=== PATIENT | female | born 1940 | race Two or more races ===

== ENCOUNTER 2023-03-04 10:50 | Emergency (ER) | payer MEDICAID ==
[~2023-03-04] VITALS: Ht 154.9 cm; Wt 85.3 kg
[2023-03-04] MEDS ORDERED: IBUPROFEN 600 MG TABLET ONE (11:15)
[2023-03-04] MEDS ORDERED: ACETAMINOPHEN ES 500 MG TABLET ONE (11:15)
[2023-03-04] MEDS: IBUPROFEN 600 MG TABLET PO ONE (11:18)
[2023-03-04] MEDS: ACETAMINOPHEN ES 500 MG TABLET PO ONE (11:18)
[2023-03-04] MEDS ORDERED: diphenhydrAMINE HCL 50 MG/ML VIAL IV ONE (12:00)
[2023-03-04] MEDS ORDERED: IV NS 0.9% 1,000 ML BAG IV ONE (12:00)
[2023-03-04] MEDS ORDERED: ONDANSETRON HCL/PF 4 MG/2 ML VIAL IVP ONE (12:00)
[2023-03-04 12:06] LABS: BASOPHILS % (AUTO) 0.2 % (0.0-2.0); EOSINOPHILS % (AUTO) 0.1 % (0.0-6.0); HEMATOCRIT 48 % (33-45); HEMOGLOBIN 16.2 g/dL (11.5-14.8); LYMPHOCYTES # (AUTO) 0.6 K/uL (0.8-4.8); LYMPHOCYTES % (AUTO) 9.8 % (20.0-44.0); MEAN CORPUSCULAR HEMOGLOBIN 32 PG (26.0-33.0); MEAN CORPUSCULAR HGB CONC 34 g/dl (31.0-36.0); MEAN CORPUSCULAR VOLUME 94 fL (82-100); MONOCYTES # (AUTO) 0.6 K/uL (0.1-1.30); MONOCYTES % (AUTO) 9.9 % (2.0-12.0); NEUTROPHILS # (AUTO) 5.2 K/uL (1.8-8.9); PLATELET COUNT (AUTO) 114 K/uL (150-450); RED BLOOD CELL COUNT(AUTO) 5.07 MIL/uL (4.0-5.2); RED CELL DISTRIBUTION WIDTH 13.2 % (11.5-15.0); WHITE BLOOD COUNT (AUTO) 6.5 K/uL (4.3-11.0)
[2023-03-04] MEDS ORDERED: ONDANSETRON HCL/PF 4 MG/2 ML VIAL ONE (12:10)
[2023-03-04] MEDS ORDERED: hydrALAZINE HCL IV 20 MG VIAL ONE (12:10)
[2023-03-04] MEDS ORDERED: diphenhydrAMINE HCL 50 MG/ML VIAL ONE (12:10)
[2023-03-04] MEDS: hydrALAZINE HCL IV 20 MG VIAL IV ONE (12:17)
[2023-03-04 12:20] LABS: CALCIUM, SERUM 9.6 mg/dL (8.5-10.1); CARBON DIOXIDE 26 mmol/L (21-32); CHLORIDE 100 mmol/L (98-107); CREATININE 0.9 mg/dL (0.6-1.3); GLUCOSE 113 mg/dL (74-106); POTASSIUM 3.9 mmol/L (3.5-5.1); SODIUM SERUM 133 mmol/L (136-145); UREA NITROGEN, BLOOD 14 mg/dL (7-18)
[2023-03-04] MEDS: IV NS 0.9% 1,000 ML BAG IV ONE (12:27)
[2023-03-04] MEDS ORDERED: AZIT500T PO (13:42)
[2023-03-04] MEDS ORDERED: IBUP-1953 PO (13:42)
[2023-03-04] MEDS ORDERED: BENZ-13 PO (13:42)
[2023-03-04 14:42] VITALS: BP 131/81; TEMP 97.9; O2SAT 96
== END 2023-03-04 14:43 | disposition home or self-care (01) ==
LOC: ER 10:54
DX: J40 Bronchitis, not specified as acute or chronic (principal); I10 Essential (primary) hypertension; Z20.822 Contact with and (suspected) exposure to COVID-19
CPT/HCPCS: 99284; 96360; 70450; 71045; 87426; 87804 ×2; 85025; 80048; 36415; 84484; J7030; C9803; J0360; J1200; J2405

== ENCOUNTER 2023-03-20 11:50 | Inpatient (IN) | payer MEDICAID ==
[~2023-03-20] VITALS: Ht 157.5 cm; Wt 74.8 kg
[~2023-03-20 11:50] MED LIST: AZIT500T PO; BENZ-13 PO; IBUP-1953 PO
[2023-03-20 12:57] LABS: BASOPHILS % (AUTO) 0.1 % (0.0-2.0); EOSINOPHILS # (AUTO) 0.1 K/uL (0.0-0.7); EOSINOPHILS % (AUTO) 0.5 % (0.0-6.0); HEMATOCRIT 41 % (33-45); HEMOGLOBIN 13.6 g/dL (11.5-14.8); LYMPHOCYTES # (AUTO) 0.3 K/uL (0.8-4.8); MEAN CORPUSCULAR HEMOGLOBIN 32 PG (26.0-33.0); MEAN CORPUSCULAR HGB CONC 33 g/dl (31.0-36.0); MEAN CORPUSCULAR VOLUME 95 fL (82-100); MONOCYTES # (AUTO) 1.1 K/uL (0.1-1.30); MONOCYTES % (AUTO) 10.4 % (2.0-12.0); NEUTROPHILS # (AUTO) 9.3 K/uL (1.8-8.9); PLATELET COUNT (AUTO) 132 K/uL (150-450); RED BLOOD CELL COUNT(AUTO) 4.31 MIL/uL (4.0-5.2); RED CELL DISTRIBUTION WIDTH 13.2 % (11.5-15.0); WHITE BLOOD COUNT (AUTO) 10.8 K/uL (4.3-11.0)
[2023-03-20] MEDS ORDERED: LOSA50TA39 PO (13:09)
[2023-03-20] MEDS ORDERED: LEVO50TA PO (13:09)
[2023-03-20 13:16] LABS: INR 1.01 (0.91-1.10); PROTHROMBIN TIME 10.7 SECS (9.2-11.1)
[2023-03-20 13:31] LABS: ALANINE AMINOTRANSFERASE 111 U/L (12-78); ALBUMIN 2.3 g/dL (3.4-5.0); ALKALINE PHOSPHATASE 170 U/L (46-116); ASPARTATE AMINOTRANSFERASE 104 U/L (15-37); BILIRUBIN,DIRECT 1.3 mg/dL (0.0-0.2); BILIRUBIN,TOTAL 1.7 mg/dL (0.2-1.0); CALCIUM, SERUM 9.7 mg/dL (8.5-10.1); CARBON DIOXIDE 24 mmol/L (21-32); CHLORIDE 100 mmol/L (98-107); CREATININE 1.4 mg/dL (0.6-1.3); GLUCOSE 125 mg/dL (74-106); POTASSIUM 3.7 mmol/L (3.5-5.1); SODIUM SERUM 132 mmol/L (136-145); UREA NITROGEN, BLOOD 32 mg/dL (7-18)
[2023-03-20 13:40] LABS: LACTIC ACID 0.9 mmol/L (0.4-2.0)
[2023-03-20 14:37] LABS: APPEARANCE,URINE CLOUDY (CLEAR); BILIRUBIN,URINE 1+ (NEGATIVE); BLOOD, URINE 2+ Ery/uL (NEGATIVE); COLOR,URINE YELLOW (YELLOW); KETONES,URINE NEGATIVE (NEGATIVE); LEUKOCYTE ESTERASE ,URINE 3+ (NEGATIVE); NITRITE, URINE POSITIVE (NEGATIVE); PH,URINE 6.5 (5.0-8.0); PROTEIN,URINE 2+ mg/dl (NEGATIVE); UGLUCOSE NEGATIVE (NEGATIVE)
[2023-03-20] MEDS ORDERED: Z GUARD REMEDY 4 OZ OINT TP PRN (17:00)
[2023-03-20] MEDS ORDERED: ONDANSETRON HCL/PF 4 MG/2 ML VIAL IVP PRN (17:00)
[2023-03-20] MEDS ORDERED: MAG HYDROX/AL HYDROX/SIMETH 30 ML UDC PO PRN (17:00)
[2023-03-20] MEDS ORDERED: ACETAMINOPHEN 325 MG TABLET PO PRN (17:00)
[2023-03-20] MEDS ORDERED: MAGNESIUM HYDROXIDE 30 ML UDC PO PRN (17:00)
[2023-03-20] MEDS ORDERED: ZOLPIDEM TARTRATE 5 MG TABLET PO PRN (17:00)
[2023-03-20] MEDS ORDERED: HYDROCODONE/APAP 5/325MG TABLET PO PRN (17:00)
[2023-03-20] MEDS ORDERED: IV NS 0.9% 1,000 ML IV PRN (17:00)
[2023-03-20 17:14] LABS: ADD URINE CULTURE YES; BACTERIA,URINE 2+ /HPF (None Seen); WBC,URINE 21-50 /HPF (0-3)
[2023-03-20 17:15] LABS: MUCUS,URINE Moderate /LPF (None Seen)
[2023-03-20] MEDS ORDERED: ACETAMINOPHEN 325 MG TABLET ONE (18:22)
[2023-03-20] MEDS ORDERED: CEFTRIAXONE 1GM BAG (ER ONLY) 50 ML IV ONE (18:41)
[2023-03-20] MEDS: CEFTRIAXONE 1 G in IV D5W 50 ML IV SCH (18:45)
[2023-03-20] MEDS ORDERED: ENOXAPARIN SODIUM 30 MG/0.3 ML DISP.SYRIN ONE (20:38)
[2023-03-20] MEDS ORDERED: ENOXAPARIN SODIUM 30 MG/0.3 ML DISP.SYRIN SQ SCH (21:00)
[2023-03-21] MEDS ORDERED: PANTOPRAZOLE 40 MG TABLET.DR PO SCH (07:30)
[2023-03-21] MEDS ORDERED: LEVOTHYROXINE SODIUM 50 MCG TABLET PO SCH (07:30)
[2023-03-21] MEDS ORDERED: PANTOPRAZOLE 40 MG TABLET.DR PO ONE (09:37)
[2023-03-21] MEDS ORDERED: LEVOTHYROXINE SODIUM 50 MCG TABLET ONE (09:37)
[2023-03-21 09:42] LABS: BASOPHILS % (AUTO) 0.1 % (0.0-2.0); EOSINOPHILS # (AUTO) 0.1 K/uL (0.0-0.7); EOSINOPHILS % (AUTO) 1.1 % (0.0-6.0); HEMATOCRIT 43 % (33-45); HEMOGLOBIN 14.1 g/dL (11.5-14.8); LYMPHOCYTES # (AUTO) 0.5 K/uL (0.8-4.8); LYMPHOCYTES % (AUTO) 5.5 % (20.0-44.0); MEAN CORPUSCULAR HEMOGLOBIN 31 PG (26.0-33.0); MEAN CORPUSCULAR HGB CONC 33 g/dl (31.0-36.0); MEAN CORPUSCULAR VOLUME 95 fL (82-100); MONOCYTES % (AUTO) 11.2 % (2.0-12.0); NEUTROPHILS # (AUTO) 7.2 K/uL (1.8-8.9); NEUTROPHILS % (AUTO) 82.1 % (43.0-81.0); PLATELET COUNT (AUTO) 153 K/uL (150-450); RED CELL DISTRIBUTION WIDTH 13.7 % (11.5-15.0); WHITE BLOOD COUNT (AUTO) 8.7 K/uL (4.3-11.0)
[2023-03-21 09:50] LABS: CALCIUM, SERUM 9.9 mg/dL (8.5-10.1); CARBON DIOXIDE 21 mmol/L (21-32); CHLORIDE 102 mmol/L (98-107); CREATININE 1.4 mg/dL (0.6-1.3); GLUCOSE 192 mg/dL (74-106); MAGNESIUM 2.4 mg/dL (1.8-2.4); PHOSPHORUS 3.2 mg/dL (2.5-4.9); SODIUM SERUM 134 mmol/L (136-145); UREA NITROGEN, BLOOD 32 mg/dL (7-18)
[2023-03-21 10:12] LABS: HDL CHOLESTEROL 11 mg/dL (40-60); LDL 62 mg/dL (0-99); THYROID STIMULATING HORMONE 5.578 uIU/mL (0.358-3.74); TRIGLYCERIDES 188 mg/dL (30-150)
[2023-03-21 10:25] LABS: CHOLESTEROL 135 mg/dL (<200)
[2023-03-21] MEDS ORDERED: CEFTRIAXONE 1GM BAG (ER ONLY) 0 ML IV ONE (17:56)
[2023-03-21] MEDS: CEFTRIAXONE 1 G in IV D5W 50 ML IV SCH (18:00)
[2023-03-21 18:41] VITALS: BP 128/68; TEMP 98.2; O2SAT 98
== END 2023-03-21 18:40 | disposition home or self-care (01) | DRG 469 ==
LOC: ER 11:59 → TRANSITION 16:06 → TELE1 03-21 08:38 → TRANSITION 03-21 09:58
DX: N17.9 Acute kidney failure, unspecified (principal); D69.6 Thrombocytopenia, unspecified; J90 Pleural effusion, not elsewhere classified; E87.1 Hypo-osmolality and hyponatremia; E86.9 Volume depletion, unspecified; N39.0 Urinary tract infection, site not specified; E03.9 Hypothyroidism, unspecified; R74.01 Elevation of levels of liver transaminase levels; Z87.01 Personal history of pneumonia (recurrent); M89.8X9 Other specified disorders of bone, unspecified site; Z79.890 Hormone replacement therapy; Z79.899 Other long term (current) drug therapy; I10 Essential (primary) hypertension; J98.11 Atelectasis
CPT/HCPCS: 36415; 71045-TC; 76700-TC; 76770-TC; 80048-TC; 80061-TC; 80076-TC; 81001; 83605-TC; 83735-TC; 84100-TC; 84443-TC; 84484-TC; 85025-TC; 85730-TC; 87040-TC; 87086-TC; 93307-TC; 97110-TC; 97116-TC; 97530-TC; A4223; G0378; J0696; J1650; J7060